=== PATIENT | female | born 1985 | race African-American/Black ===

== ENCOUNTER 2016-07-28 10:16 | Emergency (ER) | payer OTHER ==
[2016-07-28 10:21] VITALS: BMI 27.4
--- NOTE | 2016-07-28 10:27 | PDOC ---
Post Exposure HPI - General Chief Complaint: Blood/Body Fluid Exposure SJR Stated Complaint: NEEDLE STICK Time Seen by Provider: 07/28/16 10:20 History Source: Patient Exam Limitations: No Limitations - History of Present Illness Initial Comments: 07/28/16 10:23 30 y/o female stuck with needle, states patient is low risk. Was able to squeeze some blood out of finger. UTD with Tetanus and immunizations. No other complaint at this time. Timing: just prior to arrival Past History - Past Medical History Allergies/Adverse Reactions: Allergies No Known Allergies Allergy (Verified 07/28/16 10:17) Home Medications: Ambulatory Orders NK [No Known Home Medication] 07/28/16 - Social History Smoking Status: Never smoked Review of Systems - Review of Systems Able to Perform ROS?: Yes Is the patient limited Tongan proficient: No Constitutional: No: Chills, Fever Respiratory: No: Cough, Shortness of Breath Cardiac (ROS): No: Chest Pain Integumentary: No: Bruising All Other Systems: Reviewed and Negative *Physical Exam - Vital Signs Last Vital Signs Temp Pulse Resp BP Pulse Ox 16 0/0 07/28/16 10:17 07/28/16 10:17 - Physical Exam General Appearance: Yes: Nourished, Appropriately Dressed. 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 NML intact, Fully Oriented, Alert, Normal Mood/ Affect, Normal Response, Motor Strength 5/5 Post Exposure - ED Protocol - Exposure Treatment Washing/Decontamination: Soap/Water Source Patient HIV Status:: Unknown Is PEP indicated?: No Prophylaxis for HIV discussed?: No Prophylaxis given?: No Prophylaxis refused?: Yes - Referrals Employee Referred to Employee Health:: Yes Progress Note - Progress Note Progress Note: Host is being tested, will draw needle stick protocol Pt refuses medications at this time, risks and benefits explained *DC/Admit/Observation/Transfer Diagnosis at time of Disposition: Needlestick injury accident Qualifiers: Encounter type: initial encounter Qualified Code(s): W27.3XXA - Contact with needle (sewing), initial encounter - Discharge Dispostion Condition at time of disposition: Stable Admit: No - Referrals - Patient Instructions Printed Discharge Instructions: How to Handle Body Fluid Exposure -- Healthcare Worker Additional Instructions: Await results from host If worsen return to ER - Post Discharge Activity Work/School Note: Back to Work
[2016-07-28 10:32] VITALS: BP 113/79; PULSE 80; TEMP 99.3
[2016-07-28 11:13] LABS: BASOPHIL 1.1 % (0-2.0); EOSINOPHIL 3.2 % (0-4.5); MCH 26.7 pg (25.7-33.7); MCHC 33.2 g/dl (32.0-36.0); MEAN CELL VOLUME 80.4 fl (80-96); MEAN PLT VOLUME 9.4 fl (7.5-11.1); PLATELET COUNT 232 K/MM3 (134-434); RDW 12.7 % (11.6-15.6); WHITE BLOOD COUNT 4.1 K/mm3 (4.0-10.8)
[2016-07-28 11:33] LABS: ALBUMIN 4.3 g/dl (3.5-5.0); ALK PHOS 56 U/L (32-92); ANION GAP 8 (8-16); BILIRUBIN,TOTAL 1.1 mg/dl (0.2-1.0); CALCIUM 9.5 mg/dl (8.4-10.2); CHOLESTEROL 176 mg/dl; CO2 25 mmol/L (22-28); CREATININE 0.6 mg/dl (0.6-1.3); GLUCOSE,RANDOM 95 mg/dl (74-106); LDH 153 U/L (91-180); PHOSPHOROUS 3.8 mg/dl (2.5-4.6); SGOT/AST 16 U/L (10-42); SGPT/ALT 26 U/L (10-40); TOT PROT 7.5 g/dl (6.4-8.3); URIC ACID 3.5 mg/dl (2.6-7.2)
[2016-07-28 15:51] LABS: HIV 1 & 2 AB NEGATIVE; HIV 1 AGp24 NEGATIVE
[2016-07-29 08:07] LABS: HEP B SURFACE AB Non Reactive (.)
== END 2016-07-28 11:00 | disposition home or self-care (01) ==
LOC: FER 10:16
DX: S60.455A Superficial foreign body of left ring finger, initial encounter (principal); Z77.21 Contact with and (suspected) exposure to potentially hazardous body fluids; W46.1XXA Contact with contaminated hypodermic needle, initial encounter; Y93.F9 Activity, other caregiving; Y92.9 Unspecified place or not applicable
CPT/HCPCS: 36415; 80053; 82465; 82977; 83615; 84100; 84478; 84550; 85025; 86704; 86706; 86803; 87340; 87389; 99283-25